=== PATIENT | male | born 1975 | race African-American/Black ===

== ENCOUNTER 2018-10-01 16:03 | Emergency (ER) | payer SELFPAY ==
--- NOTE | 2018-10-01 16:23 | ER Document Report ---
ED Medical Screen (RME) - General Chief Complaint: Leg Pain Stated Complaint: RIGHT LEG PAIN Time Seen by Provider: 10/01/18 16:19 Mode of Arrival: Wheelchair Information source: Patient, Relative TRAVEL OUTSIDE OF THE [place] IN LAST 30 DAYS: No - HPI Patient complains to provider of: L leg pain Onset: Yesterday - pt. with c/o bilateral lelg pain, swelling, and redness. Denies trauma Physical Exam - Vital signs Vitals: Temp Pulse Resp BP Pulse Ox 98.7 F 92 16 123/67 100 10/01/18 16:15 10/01/18 16:15 10/01/18 16:15 10/01/18 16:15 10/01/18 16:15 Course - Vital Signs Vital signs: Temp Pulse Resp BP Pulse Ox 98.7 F 92 16 123/67 100 10/01/18 16:15 10/01/18 16:15 10/01/18 16:15 10/01/18 16:15 10/01/18 16:15
[2018-10-01] MEDS ORDERED: NORMAL SALINE 1000 ML 1,000 ML IV ONE ×2 (16:49→18:48)
[2018-10-01 17:12] LABS: LIPASE 65.1 U/L (23-300)
[2018-10-01 17:22] LABS: ALANINE AMINOTRANSFERASE 28 U/L (21-72); ALBUMIN 4.4 g/dL (3.5-5.0); ALKALINE PHOSPHATASE 80 U/L (38-126); ANION GAP 13 (5-19); ASPARTATE AMINO TRANSFERASE 35 U/L (17-59); BILIRUBIN,DIRECT 0.2 mg/dL (0.0-0.4); BILIRUBIN,TOTAL 0.5 mg/dL (0.2-1.3); BLOOD UREA NITROGEN 16 mg/dL (7-20); CALCIUM 9.8 mg/dL (8.4-10.2); CARBON DIOXIDE 25 mmol/L (22-30); CHLORIDE 102 mmol/L (98-107); GLUCOSE 98 mg/dL (75-110); POTASSIUM 4.1 mmol/L (3.6-5.0); SODIUM 140.3 mmol/L (137-145); TOTAL PROTEIN 7.4 g/dL (6.3-8.2)
--- NOTE | 2018-10-01 17:42 | RADIOLOGY REPORT (SQ) ---
EXAM DESCRIPTION: VENOUS BILATERAL LOWER COMPLETED DATE/TIME: 10/01/2018 5:33 pm REASON FOR STUDY: pain both legs COMPARISON: None. TECHNIQUE: Dynamic and static swartz scale and color images acquired of both lower extremity venous sy stems. Selected spectral images acquired with additional compression and augmentation maneuvers. Imag es stored on PACS. LIMITATIONS: None. FINDINGS: RIGHT LEG COMMON FEMORAL AND FEMORAL: Normal phasicity, compression and augmentation. No visualized echogenic m aterial on swartz scale. No defects on color images. POPLITEAL: Normal compression and augmentation. No visualized echogenic material on swartz scale. No de fects on color images. CALF VESSELS: Normal compression and augmentation. No visualized echogenic material on swartz scale. No defects on color image. GSV AND SSV: Normal compression. No visualized echogenic material on swartz scale. No defects on color images. ANY DEEP VENOUS INSUFFICIENCY: Not evaluated. ANY EVIDENCE OF POPLITEAL CYST: No. OTHER: No other significant finding. LEFT LEG COMMON FEMORAL AND FEMORAL: Normal phasicity, compression and augmentation. No visualized echogenic m aterial on swartz scale. No defects on color images. POPLITEAL: Normal compression and augmentation. No visualized echogenic material on swartz scale. No de fects on color images. CALF VESSELS: Normal compression and augmentation. No visualized echogenic material on swartz scale. No defects on color images. GSV AND SSV: Normal compression. No visualized echogenic material on swartz scale. No defects on color images. ANY DEEP VENOUS INSUFFICIENCY: Not evaluated. ANY EVIDENCE POPLITEAL CYST: No. OTHER: No other significant finding. IMPRESSION: NO EVIDENCE DVT OR SVT IN EITHER LEG. TECHNICAL DOCUMENTATION: JOB ID: [id number] 2010 [employer]- All Rights Reserved Reading location - IP/workstation name: [email or web address]
[2018-10-01 18:53] LABS: ABSOLUTE BASOPHILS # (AUTO) 0.1 10^3/uL (0.0-0.2); ABSOLUTE EOSINOPHILS # (AUTO) 0.1 10^3/uL (0.0-0.6); ABSOLUTE LYMPHOCYTES (AUTO) 1.5 10^3/uL (0.5-4.7); ABSOLUTE NEUT (AUTO) 5.1 10^3/uL (1.7-8.2); BASOPHILS % (AUTO) 1.5 % (0-2); EOSINOPHILS % (AUTO) 1.2 % (0-6); HEMATOCRIT 31.9 % (37.9-51.0); HEMOGLOBIN 10.7 g/dL (13.5-17.0); MEAN CORPUSCULAR HEMOGLOBIN 29.6 pg (27.0-33.4); MEAN CORPUSCULAR HGB CONC 33.5 g/dL (32.0-36.0); MEAN CORPUSCULAR VOLUME 88 fl (80-97); MONOCYTES % (AUTO) 12.8 % (3-13); PLATELET COUNT 230 10^3/uL (150-450); RED BLOOD COUNT 3.61 10^6/uL (4.35-5.55); RED CELL DISTRIBUTION WIDTH 13.6 % (11.5-14.0); SEGMENTED NEUTROPHILS % (AUTO) 65.5 % (42-78); TOTAL CELLS COUNTED % (AUTO) 100 %; WHITE BLOOD COUNT 7.8 10^3/uL (4.0-10.5)
--- NOTE | 2018-10-01 19:25 | RADIOLOGY REPORT (SQ) ---
EXAM DESCRIPTION: ANKLE LEFT COMPLETE COMPLETED DATE/TIME: 10/01/2018 7:13 pm REASON FOR STUDY: pain COMPARISON: None. EXAM PARAMETERS: NUMBER OF VIEWS: Three views. TECHNIQUE: AP, lateral and oblique radiographic images acquired of the left ankle. LIMITATIONS: None. FINDINGS: MINERALIZATION: Normal. BONES: No acute fracture or dislocation. No worrisome bone lesions. JOINTS: No effusion. SOFT TISSUES: No significant soft tissue swelling. No radiopaque foreign body. OTHER: No other significant finding. IMPRESSION: NO FRACTURE. TECHNICAL DOCUMENTATION: JOB ID: [id number] [id number] 2010 [employer]- All Rights Reserved Reading location - IP/workstation name: [email or web address]
[2018-10-01 20:13] LABS: APPEARANCE,URINE CLEAR; BILIRUBIN,URINE NEGATIVE (NEGATIVE); COLOR,URINE STRAW; GLUCOSE, URINE NEGATIVE (NEGATIVE); KETONES,URINE NEGATIVE (NEGATIVE); LEUKOCYTE ESTERASE,URINE NEGATIVE (NEGATIVE); NITRITE,URINE NEGATIVE (NEGATIVE); PROTEIN,URINE NEGATIVE (NEGATIVE); URINE SPECIFIC GRAVITY 1.013; UROBILINOGEN,URINE NEGATIVE mg/dL (<2.0)
[2018-10-01 20:27] LABS: URINE AMPHETAMINES SCREEN UNCONFIRMED POSITIVE; URINE BARBITURATES SCREEN NEGATIVE; URINE BENZODIAZEPINES SCREEN UNCONFIRMED POSITIVE; URINE COCAINE SCREEN UNCONFIRMED POSITIVE; URINE MARIJUANA (THC) SCREEN NEGATIVE; URINE METHADONE SCREEN NEGATIVE; URINE PHENCYCLIDINE SCREEN NEGATIVE
[2018-10-01] MEDS ORDERED: CEPHALEXIN 500 MG CAPSULE PO ONE (21:18)
--- NOTE | 2018-10-01 21:20 | ER Document Report ---
ED General - General Chief Complaint: Leg Pain Stated Complaint: RIGHT LEG PAIN Time Seen by Provider: 10/01/18 16:19 Mode of Arrival: Wheelchair TRAVEL OUTSIDE OF THE [place] IN LAST 30 DAYS: No - HPI Patient complains to provider of: Left leg pain redness Notes: I was called to the patient's room upon being brought back to the main ER. Patient has some shaking nursing was concern for seizure-like activity. The fianc was at bedside states that patient does have a significant history for illicit substance abuse possibly heroin and opiates. Patient does have some generalized shaking with his eyes closed however is able to be easily redirected and answer simple questions admits to using cocaine earlier today. Otherwise patient is coming in for pain to his lower extremity states difficulty in walking fianc states there is some redness to the leg directed nursing staff to place the patient in bed be placed on a monitor. Otherwise tremors look to be self-induced. I return later after the patient was in the bed and disclosed to further evaluate the patient. Patient resting easily arousable however does fall back asleep. No signs of apnea patient states he did have some small abrasions to the left lower leg and some redness and pain states this area is also warm no fevers no chills. Patient otherwise has GCS of 15 he is arousable no signs of seizure-like activity states no medical issues no trauma. - Related Data Allergies/Adverse Reactions: No Known Allergies Allergy (Unverified 10/01/18 18:01) Past Medical History - General Information source: Patient, Relative - Social History Smoking Status: Current Every Day Smoker Family History: Reviewed & Not Pertinent Patient has suicidal ideation: No Patient has homicidal ideation: No Renal/ Medical History: Denies: Hx Peritoneal Dialysis Past Surgical History: Reports: Hx Orthopedic Surgery - L arm, metal rods Review of Systems - Review of Systems Constitutional: No symptoms reported EENT: No symptoms reported Cardiovascular: No symptoms reported Respiratory: No symptoms reported Gastrointestinal: No symptoms reported Genitourinary: No symptoms reported Male Genitourinary: No symptoms reported Musculoskeletal: Other - Left leg swelling pain Skin: No symptoms reported Hematologic/Lymphatic: No symptoms reported Neurological/Psychological: No symptoms reported Physical Exam - Vital signs Vitals: Temp Pulse Resp BP Pulse Ox 98.7 F 92 16 123/67 100 10/01/18 16:15 10/01/18 16:15 11/03/18 16:15 10/01/18 16:15 10/01/18 16:15 Interpretation: Normal - General General appearance: Appears well, Alert - HEENT Head: Normocephalic, Atraumatic Eyes: Normal Pupils: PERRL - Respiratory Respiratory status: No respiratory distress Chest status: Nontender Breath sounds: Normal Chest palpation: Normal - Cardiovascular Rhythm: Regular Heart sounds: Normal auscultation Murmur: No - Abdominal Inspection: Normal Distension: No distension Bowel sounds: Normal Tenderness: Nontender Organomegaly: No organomegaly - Back Back: Normal, Nontender - Extremities General upper extremity: Normal inspection, Nontender, Normal color, Normal ROM , Normal temperature General lower extremity: Nontender, Normal color, Normal ROM, Normal temperature , Normal weight bearing. No: Normal inspection - Slight erythema with warmth just above the lateral malleolus on the anterior part of the harvey shows and small healed abrasions erythema and warmth looks to be consistent with cellulitis - Neurological Neuro grossly intact: Yes Cognition: Normal Orientation: AAOx4 Wolf Coma Scale Eye Opening: Spontaneous Parker Coma Scale Verbal: Oriented Parker Coma Scale Motor: Obeys Commands Parker Coma Scale Total: 15 Speech: Normal Motor strength normal: LUE, RUE, LLE, RLE Sensory: Normal - Psychological Associated symptoms: Normal affect, Normal mood - Skin Skin Temperature: Warm Skin Moisture: Dry Skin Color: Normal Course - Re-evaluation Re-evalutation: 10/01/18 23:00 Patient was monitored for quite some time urine drug screen did reveal multiple illicit substances in his urinalysis. Patient does admit to cocaine and does admit to opiate use. Patient denies any injections states he snorts his illicit substances. Otherwise patient was able to ambulate around the ER without any difficulty. Explained to the patient concerned about cellulitis therefore discharge patient home on Keflex patient was also given information for substance abuse. - Vital Signs Vital signs: Temp Pulse Resp BP Pulse Ox 99.7 F 69 18 123/86 H 98 10/01/18 21:27 10/01/18 21:27 10/01/18 21:01 10/01/18 21:27 10/01/18 21:27 - Laboratory Result Diagrams: 10/01/18 18:20 10/01/18 16:30 Laboratory results interpreted by me: 10/01/18 10/01/18 16:30 18:20 RBC 3.61 L Hgb 10.7 L Hct 31.9 L Creatine Kinase 680 H Discharge - Discharge Clinical Impression: Substance abuse Cellulitis Qualifiers: Site of cellulitis: unspecified site Qualified Code(s): L03.90 - Cellulitis, unspecified Condition: Good Disposition: HOME, SELF-CARE Instructions: Cellulitis ([facility]) Additional Instructions: Your physical examination is consistent with cellulitis of the left lower leg more likely cause from the abrasions. Please take the antibiotics as prescribed. Also recommend that she receive help for your illicit substance abuse. Please avoid any illicit substances I recommend following up with [facility] on the list given to you and your discharge papers he may also follow-up with any of the other services provided. Return to the ER for any other concerns Prescriptions: Cephalexin Monohydrate [Keflex 500 mg Capsule] 500 mg PO Q6H 5 Days capsule Forms: Return to Work
[2018-10-01 21:28] VITALS: BP 123/86
== END 2018-10-01 21:28 | disposition home or self-care (01) ==
LOC: ER 16:03
DX: L03.90 Cellulitis, unspecified (principal); F14.10 Cocaine abuse, uncomplicated; F11.10 Opioid abuse, uncomplicated; F17.200 Nicotine dependence, unspecified, uncomplicated; R25.1 Tremor, unspecified
CPT/HCPCS: 99284; 96360; 96361; 36415; 80307 ×2; 82550; 83690; 85025; 80053; 81001; 93970; 73610; J7030